=== PATIENT | female | born 1955 | race Caucasian/White ===

== ENCOUNTER 2019-05-06 14:37 | Emergency (ER) | payer BC, MEDICARE ==
[2019-05-06 14:45] VITALS: TEMP 98.5
[2019-05-06 15:19] LABS: Appearance,Urine Clear (Clear); Bilirubin,Urine Negative (Negative); Blood,Urine Negative (Negative); Color,Urine Yellow; Glucose,Urine (UA) Negative (Negative); Ketones,Urine Negative (Negative); Leukocyte Esterase,Urine Negative (Negative); Nitrite,Urine Negative (Negative); PH, Urine 7.5 (5.0-8.0); Protein,Urine Negative (Negative); Specific Gravity,Urine 1.002 (1.001-1.035); Urobilinogen,Urine <2.0 mg/dL (<2.0)
[2019-05-06 15:33] LABS: Basophils % (A) 1 %; Eosinophils # (A) 0.1 k/uL (0-0.7); Eosinophils % (A) 1 %; HCT 41.5 % (34.0-46.0); HGB 14.2 gm/dL (11.4-16.0); Lymphocytes % (A) 35 %; MCH 31.6 pg (25.0-35.0); MCHC 34.2 g/dL (31.0-37.0); MCV 92.4 fL (80.0-100.0); Mean Platelet Volume 7.8; Monocytes # (A) 0.4 k/uL (0-1.0); Monocytes % (A) 7 %; Neutrophils # (A) 3.3 k/uL (1.3-7.7); Neutrophils % (A) 56 %; Platelet Count 235 k/uL (150-450); RBC 4.49 m/uL (3.80-5.40); WBC 5.9 k/uL (3.8-10.6)
[2019-05-06 15:42] LABS: ALT 24 U/L (9-52); AST 33 U/L (14-36); African American GFR (CKD) >90 (>60 ml/min/1.73 sqM); Albumin 4.5 g/dL (3.5-5.0); Alkaline Phosphatase 75 U/L (38-126); Amylase 127 U/L (30-110); Anion Gap 10 mmol/L; Blood Urea Nitrogen 11 mg/dL (7-17); Calcium 9.8 mg/dL (8.4-10.2); Carbon Dioxide 27 mmol/L (22-30); Chloride 105 mmol/L (98-107); Glucose 93 mg/dL (74-99); Potassium 4.3 mmol/L (3.5-5.1); Sodium 142 mmol/L (137-145); Total Bilirubin 0.6 mg/dL (0.2-1.3); Total Protein 7.8 g/dL (6.3-8.2)
--- NOTE | 2019-05-06 16:21 | CT ---
EXAMINATION TYPE: CT abdomen pelvis w con DATE OF EXAM: 05/06/2019 HISTORY: Right lower quadrant and pelvic pain with some nausea. CT DLP: 754.8mGycm Automated Exposure Control for Dose Reduction was Utilized. CONTRAST: CT scan of the abdomen and pelvis is performed with IV Contrast, patient injected with 100 mL of Isov ue 300. COMPARISON: None. FINDINGS: LUNG BASES: Minimal bibasilar subsegmental dependent atelectasis. LIVER/GB: Very mild degree hepatic steatosis. Gallbladder is surgically absent. Minimal intrahepatic biliary ductal dilatation, likely due to post cholecystectomy. PANCREAS: No pancreatic ductal dilatation. Pancreas enhances homogeneously. SPLEEN: Benign splenic granulomas. ADRENALS: There is a 7 mm left adrenal gland nodule seen on image 22 that is not compatible with a be nign adrenal gland adenoma. This has an average Hounsfield unit of 51 on postcontrast imaging. KIDNEYS: No hydronephrosis is seen. Kidneys enhance and excrete symmetrically. BOWEL: Very small hiatal hernia. Appendix is air-filled and within normal limits. Numerous colonic di verticula predominating of the sigmoid colon. Mild degree colonic fecal stasis. Terminal ileum is dec ompressed without surrounding inflammatory fat stranding. Overall no dilated large or small bowel is seen. Few loops of small bowel with prominent bowel wall, which may relate to incomplete distention a re seen in the central and left paracentral abdomen on image 35. UTERUS/ADNEXA: Uterus appears surgically absent. LYMPH NODES: No greater than 1cm abdominal or pelvic lymph nodes are appreciated. OSSEOUS STRUCTURES: Mild diffuse osseous demineralization and mild degenerative changes of the spine. Mild to moderate femoral acetabular arthropathy.. OTHER: Moderate atheromatous change of the abdominal aorta and its branches. IMPRESSION: No CT evidence of acute appendicitis or bowel obstruction. Terminal ileum is decompressed although no surrounding fat stranding is seen. There are cluster loops of small bowel in the mid abdomen and lef t paracentral abdomen display relative bowel wall thickening however these are incompletely distended and this may be artifactual. Enteritis could be considered in the appropriate clinical setting.
[2019-05-06 16:28] VITALS: BP 144/69; PULSE 75; RESP 16
--- NOTE | 2019-05-06 16:55 | ED ---
General Adult HPI - General Chief complaint: Abdominal Pain Stated complaint: Lower abd pain Time Seen by Provider: 05/06/19 14:49 Source: patient, RN notes reviewed Mode of arrival: ambulatory Limitations: no limitations - History of Present Illness Initial comments: 63-year-old female with a past medical history of diverticulosis, hiatal hernia, hypertension presents to the emergency department for a chief complaint of right lower quadrant pain 3 hours. Patient states that this is radiating up to her umbilicus and to her right groin. Denies any pain in her hip or movement of her head. Denies any fevers or chills. Denies any nausea vomiting diarrhea. States she did have a normal bowel movement today. Patient does admit she had a colonoscopy and has a history of diverticulosis however has never had diverticulitis. Patient admits to abdominal history of hysterectomy in the past as well as cholecystectomy. Patient states the pain was much more severe before arriving to has decreased significantly and is now a 3 out of 10.Patient has no other complaints at this time including shortness of breath, chest pain, nausea or vomiting, headache, or visual changes. - Related Data Home Medications Medication Instructions Recorded Confirmed Multivitamins, Thera [Multivitamin 1 tab PO DAILY 05/06/19 05/06/19 (formulary)] Natural Thyroid Otc 1 tab PO BID 05/06/19 05/06/19 Allergies Allergy/AdvReac Type Severity Reaction Status Date / Time erythromycin base Allergy Itching Verified 05/06/19 14:50 [Erythromycin Base] Penicillins Allergy Anaphylaxis Verified 05/06/19 14:50 polyethylene glycol 3350 Allergy Unknown Verified 05/06/19 14:50 [From Miralax] sulfamethoxazole Allergy Itching Verified 05/06/19 14:50 [From Bactrim] trimethoprim [From Bactrim] Allergy Itching Verified 05/06/19 14:50 Review of Systems ROS Statement: Those systems with pertinent positive or pertinent negative responses have been documented in the HPI. ROS Other: All systems not noted in ROS Statement are negative. Past Medical History Past Medical History: Hypertension, Thyroid Disorder Additional Past Medical History / Comment(s): diverticulosis, hiatel hernia, osteopenia History of Any Multi-Drug Resistant Organisms: None Reported Past Surgical History: Section, Hysterectomy Past Psychological History: No Psychological Hx Reported Smoking Status: Former smoker Past Alcohol Use History: None Reported Past Drug Use History: None Reported General Exam Limitations: no limitations General appearance: alert, in no apparent distress Head exam: Present: atraumatic, normocephalic, normal inspection Eye exam: Present: normal appearance, PERRL, EOMI. Absent: scleral icterus, conjunctival injection, periorbital swelling ENT exam: Present: normal exam, mucous membranes moist Neck exam: Present: normal inspection, full ROM. Absent: tenderness, meningismus, lymphadenopathy Respiratory exam: Present: normal lung sounds bilaterally. Absent: respiratory distress, wheezes, rales, rhonchi, stridor Cardiovascular Exam: Present: regular rate, normal rhythm, normal heart sounds. Absent: systolic murmur, diastolic murmur, rubs, gallop, clicks GI/Abdominal exam: Present: soft, tenderness (Tenderness noted in the bilateral lower quadrants of the abdomen. No rebound tenderness or guarding.), normal bowel sounds. Absent: distended, guarding, rebound, rigid Neurological exam: Present: alert Psychiatric exam: Present: normal affect, normal mood Course Vital Signs 05/06/19 05/06/19 14:42 16:27 Temperature 98.5 F Pulse Rate 70 75 Respiratory 18 16 Rate Blood Pressure 151/83 144/69 O2 Sat by Pulse 98 99 Oximetry Medical Decision Making - Medical Decision Making History obtained from patient. Vitals are stable throughout her stay. Physical exam as documented. No significant rebound tenderness or guarding noted. CBC CMP unremarkable. Minimal elevation of amylase however lipase is normal. No acute pancreatitis. Urinalysis is normal. Given abdominal pain with history of diverticulosis and pain in the left lower quadrant as well as right lower quadrant CT was ordered to rule out diverticulitis and appendicitis. This shows no evidence of acute appendicitis or obstruction. There are cluster loops of small bowel in the mid abdomen and left paracentral abdomen the displays a relatively bowel wall thickening however these are included distended and may be artifactual. Patient is not currently expressing any nausea vomiting diarrhea. At this time pain is much improved after reevaluation. Patient may have had a spastic colon. At this time she will follow up with primary care. She will return here if she has any worsening symptoms. - Lab Data Result diagrams: 05/06/19 15:22 05/06/19 15:22 Lab Results 09/02/19 09/02/19 09/02/19 Range/Units 15:10 15:22 15:22 WBC 5.9 (3.8-10.6) k/uL RBC 4.49 (3.80-5.40) m/uL Hgb 14.2 (11.4-16.0) gm/dL Hct 41.5 (34.0-46.0) % MCV 92.4 (80.0-100.0) fL MCH 31.6 (25.0-35.0) pg MCHC 34.2 (31.0-37.0) g/dL RDW 15.0 (11.5-15.5) % Plt Count 235 (150-450) k/uL Neutrophils % 56 % Lymphocytes % 35 % Monocytes % 7 % Eosinophils % 1 % Basophils % 1 % Neutrophils # 3.3 (1.3-7.7) k/uL Lymphocytes # 2.0 (1.0-4.8) k/uL Monocytes # 0.4 (0-1.0) k/uL Eosinophils # 0.1 (0-0.7) k/uL Basophils # 0.0 (0-0.2) k/uL Sodium 142 (137-145) mmol/L Potassium 4.3 (3.5-5.1) mmol/L Chloride 105 (98-107) mmol/L Carbon Dioxide 27 (22-30) mmol/L Anion Gap 10 mmol/L BUN 11 (7-17) mg/dL Creatinine 0.54 (0.52-1.04) mg/dL Est GFR (CKD-EPI)AfAm >90 (>60 ml/min/1.73 sqM) Est GFR (CKD-EPI)NonAf >90 (>60 ml/min/1.73 sqM) Glucose 93 (74-99) mg/dL Plasma Lactic Acid Vipul (0.7-2.0) mmol/L Calcium 9.8 (8.4-10.2) mg/dL Total Bilirubin 0.6 (0.2-1.3) mg/dL AST 33 (14-36) U/L ALT 24 (9-52) U/L Alkaline Phosphatase 75 (38-126) U/L Total Protein 7.8 (6.3-8.2) g/dL Albumin 4.5 (3.5-5.0) g/dL Amylase 127 H (30-110) U/L Lipase 113 (23-300) U/L Urine Color Yellow Urine Appearance Clear (Clear) Urine pH 7.5 (5.0-8.0) Ur Specific [place] 1.002 (1.001-1.035) Urine Protein Negative (Negative) Urine Glucose (UA) Negative (Negative) Urine Ketones Negative (Negative) Urine Blood Negative (Negative) Urine Nitrite Negative (Negative) Urine Bilirubin Negative (Negative) Urine Urobilinogen <2.0 (<2.0) mg/dL Ur Leukocyte Esterase Negative (Negative) 05/06/19 Range/Units 15:22 WBC (3.8-10.6) k/uL RBC (3.80-5.40) m/uL Hgb (11.4-16.0) gm/dL Hct (34.0-46.0) % MCV (80.0-100.0) fL MCH (25.0-35.0) pg MCHC (31.0-37.0) g/dL RDW (11.5-15.5) % Plt Count (150-450) k/uL Neutrophils % % Lymphocytes % % Monocytes % % Eosinophils % % Basophils % % Neutrophils # (1.3-7.7) k/uL Lymphocytes # (1.0-4.8) k/uL Monocytes # (0-1.0) k/uL Eosinophils # (0-0.7) k/uL Basophils # (0-0.2) k/uL Sodium (137-145) mmol/L Potassium (3.5-5.1) mmol/L Chloride (98-107) mmol/L Carbon Dioxide (22-30) mmol/L Anion Gap mmol/L BUN (7-17) mg/dL Creatinine (0.52-1.04) mg/dL Est GFR (CKD-EPI)AfAm (>60 ml/min/1.73 sqM) Est GFR (CKD-EPI)NonAf (>60 ml/min/1.73 sqM) Glucose (74-99) mg/dL Plasma Lactic Acid Vipul 1.2 (0.7-2.0) mmol/L Calcium (8.4-10.2) mg/dL Total Bilirubin (0.2-1.3) mg/dL AST (14-36) U/L ALT (9-52) U/L Alkaline Phosphatase (38-126) U/L Total Protein (6.3-8.2) g/dL Albumin (3.5-5.0) g/dL Amylase (30-110) U/L Lipase (23-300) U/L Urine Color Urine Appearance (Clear) Urine pH (5.0-8.0) Ur Specific [place] (1.001-1.035) Urine Protein (Negative) Urine Glucose (UA) (Negative) Urine Ketones (Negative) Urine Blood (Negative) Urine Nitrite (Negative) Urine Bilirubin (Negative) Urine Urobilinogen (<2.0) mg/dL Ur Leukocyte Esterase (Negative) Disposition Clinical Impression: Abdominal pain, Spasm of colon Disposition: HOME SELF-CARE Instructions (If sedation given, give patient instructions): Abdominal Pain (ED) Additional Instructions: Please follow up with primary care in 1-2 days. If pain worsens or you have any other worsening or concerning symptoms return to the emergency department for further evaluation. Is patient prescribed a controlled substance at d/c from ED?: No Referrals: Shadia Fowler MD [Primary Care Provider] - 1-2 days Time of Disposition: 16:54
== END 2019-05-06 17:35 | disposition home or self-care (01) ==
LOC: EC 14:37
DX: K58.9 Irritable bowel syndrome, unspecified (principal); I10 Essential (primary) hypertension; R74.8 Abnormal levels of other serum enzymes; E07.9 Disorder of thyroid, unspecified; Z79.890 Hormone replacement therapy; Z79.899 Other long term (current) drug therapy; Z88.0 Allergy status to penicillin; Z88.1 Allergy status to other antibiotic agents; Z88.2 Allergy status to sulfonamides; Z90.49 Acquired absence of other specified parts of digestive tract; Z87.19 Personal history of other diseases of the digestive system; Z87.891 Personal history of nicotine dependence; Z90.710 Acquired absence of both cervix and uterus
CPT/HCPCS: 36415; 80053; 82150; 83605; 83690; 85025; 81003; 74177; 99284; Q9967

== ENCOUNTER 2021-03-31 07:21 | Day surgery (SDC) | payer MEDICARE ==
[2021-03-26 13:16] VITALS: BMI 25.4
[~2021-03-31 07:21] MED LIST: LACTATED RINGERS 1,000 ML IV SCH; LIDOCAINE 1% (10MG/ML) FOR IV START INTRADERMA PRN
--- NOTE | 2021-03-31 07:35 | P.GSHP ---
History of Present Illness H&P Date: 03/31/21 CHIEF COMPLAINT: GERD and colon screen HISTORY OF PRESENT ILLNESS: The patient is a 65-year-old female who presents with gastroesophageal reflux disease and need for colon screen. Upper and lower endoscopy were offered for further evaluation and management. PAST MEDICAL HISTORY: Please see list. PAST SURGICAL HISTORY: Please see list. MEDICATIONS: Please see list. ALLERGIES: Please see list. SOCIAL HISTORY: No illicit drug use FAMILY HISTORY: No reports of Crohn disease or ulcerative colitis. REVIEW OF ORGAN SYSTEMS: CONSTITUTIONAL: No reports of fevers or chills. GI: Denies any blood in stools or constipation. PHYSICAL EXAM: VITAL SIGNS: Stable GENERAL: Well-developed pleasant in no acute distress. HEENT: No scleral icterus. Extraocular movements grossly intact. Moist buccal mucosa. NECK: Supple without lymphadenopathy. CHEST: Unlabored respirations. Equal bilateral excursions. CARDIOVASCULAR: Regular rate and rhythm. Distal 2+ pulses. ABDOMEN: Soft, nondistended. MUSCULOSKELETAL: No clubbing, cyanosis, or edema. ASSESSMENT: 1. Gastroesophageal reflux disease 2. Colon screen. PLAN: 1. Recommend proceeding with an upper and lower endoscopy Past Medical History Past Medical History: Thyroid Disorder Additional Past Medical History / Comment(s): diverticulosis, hiatel hernia, osteopenia History of Any Multi-Drug Resistant Organisms: None Reported Past Surgical History: Section, Cholecystectomy, Hysterectomy Past Anesthesia/Blood Transfusion Reactions: No Reported Reaction, Postoperative Nausea & Vomiting (PONV) Smoking Status: Former smoker Medications and Allergies Home Medications Medication Instructions Recorded Confirmed Type Multivitamins, Thera [Multivitamin 1 tab PO DAILY 05/06/19 03/26/21 History (formulary)] Natural Thyroid Otc 1 tab PO BID 05/06/19 03/26/21 History Enzyme 1 dose PO AC-TID 03/26/21 03/26/21 History Krill Oil 500 mg PO DAILY 03/26/21 03/26/21 History Ubidecarenone [Co Q-10] 100 mg PO DAILY 03/26/21 03/26/21 History Vitamin B Complex 1 each PO DAILY 03/26/21 03/26/21 History Allergies Allergy/AdvReac Type Severity Reaction Status Date / Time erythromycin base Allergy Itching Verified 05/06/19 14:50 [Erythromycin Base] monosodium glutamate [MSG] Allergy Unknown Verified 03/26/21 13:10 Penicillins Allergy Anaphylaxis Verified 05/06/19 14:50 polyethylene glycol 3350 Allergy Unknown Verified 05/06/19 14:50 [From Miralax] sulfamethoxazole Allergy Itching Verified 05/06/19 14:50 [From Bactrim] trimethoprim [From Bactrim] Allergy Itching Verified 05/06/19 14:50 all mycins Allergy Unknown Uncoded 03/26/21 13:10 PEG Allergy Unknown Uncoded 03/26/21 13:10
[2021-03-31] MEDS ORDERED: LACTATED RINGERS 1,000 ML IV ONE (07:38)
[2021-03-31 07:40] VITALS: TEMP 97.1
[2021-03-31 08:02] LABS: Glucose,Whole Blood 218 mg/dL (75-99)
[2021-03-31] MEDS ORDERED: LIDOCAINE 1% INJ 10MG/ML (20 ML MDV) ONE (08:10)
[2021-03-31] MEDS ORDERED: PROPOFOL 10 MG/ML 20 ML VIAL IV ONE (08:10)
--- NOTE | 2021-03-31 08:23 | P.PCN ---
Date of Procedure: 03/31/21 Description of Procedure: PREOPERATIVE DIAGNOSIS: Gastroesophageal reflux disease. POSTOPERATIVE DIAGNOSIS: Gastritis. Gastroesophageal reflux disease. Diaphragmatic hiatal hernia OPERATION: Esophagogastroduodenoscopy with biopsies along antrum. SURGEON: Elizabeht Gonzalez MD ANESTHESIA: MAC. INDICATIONS: The patient is a 65-year-old female who presents with a history of reflux disease. Benefits and risks of the procedure were described. Informed consent was obtained. DESCRIPTION: The patient was brought into the endoscopy suite and laid in the left lateral decubitus position. An Olympus gastroscope was passed along the posterior oropharynx down to the distal esophagus where the squamocolumnar junction was encountered at 38 cm from the incisors. The stomach was entered and no bile reflux was found. Additional findings are listed below. Biopsies with cold forceps were obtained of the antrum. The first through third portion of the duodenum was examined and unremarkable. Retroflexion of the scope confirmed Hill grade 3 lower esophageal valve. The squamocolumnar junction demonstrated LA grade B erosive esophagitis. The stomach was desufflated. The patient tolerated the procedure well. FINDINGS: Squamocolumnar junction 38 cm from the incisors. Diaphragmatic hiatus at 40 cm. Hiatal hernia, 2 cm Hill grade 3 lower esophageal valve. LA grade B erosive esophagitis. No active duodenitis. Chronic gastritis RECOMMENDATIONS: Upper endoscopy as needed.
--- NOTE | 2021-03-31 08:50 | P.PCN ---
Date of Procedure: 03/31/21 Description of Procedure: PREOPERATIVE DIAGNOSIS: Personal history colon polyps Family history colon polyps Colonoscopy screening. POSTOPERATIVE DIAGNOSIS: Personal history colon polyps Family history colon polyps Colonoscopy screening. Diverticulosis, scattered. OPERATION: Colonoscopy to the cecum, ileocecal valve and appendiceal orifice. SURGEON: Elizabeth Gonzalez MD. ANESTHESIA: MAC. INDICATIONS: The patient is a 65-year-old female who presents for colonoscopy screening. Last colonoscopy over 10 years ago. Benefits and risks were described and informed consent was obtained. DESCRIPTION OF PROCEDURE: The patient had undergone Suprep. The patient had been brought into the operating room and laid in the left lateral decubitus position. After adequate intravenous sedation, the rectum was examined with 2% lidocaine jelly. External hemorrhoids were encountered. The rectal tone was within normal limits. No lesions were palpated in the rectal vault. An Olympus colonoscope was advanced to the ascending colon however limited to severe redundancy of sigmoid colon despite abdominal wall pressure. The prep was excellent. Severe sigmoid diverticulosis was encountered. Severe redundancy of sigmoid colon was identified. No colonic polyps were found. No evidence of focal colitis was fo und. Retroflexion of the scope demonstrated grade 1 internal hemorrhoids without active bleeding or inflammation. The colon was desufflated. The patient had tolerated the procedure well. Withdrawal time was over 6 minutes. FINDINGS: Aronchick preparation quality scale 1 (1-5) Internal hemorrhoids, grade 1 Severe redundancy sigmoid colon External prolapsed hemorrhoids, grade 2 No arteriovenous malformations. No adenomatous polyps. No focal colitis. RECOMMENDATIONS: Lower endoscopy in 5 years, 2025 May benefit from Cologaurd Plan - Discharge Summary Discharge Rx Participant: No New Discharge Prescriptions: Continue Multivitamins, Thera [Multivitamin (formulary)] 1 tab PO DAILY Natural Thyroid Otc 1 tab PO BID Krill Oil 500 mg PO DAILY Ubidecarenone [Co Q-10] 100 mg PO DAILY Vitamin B Complex 1 each PO DAILY Enzyme 1 dose PO AC-TID Discharge Medication List Multivitamins, Thera [Multivitamin (formulary)] 1 tab PO DAILY 05/06/19 [History] Natural Thyroid Otc 1 tab PO BID 05/06/19 [History] Enzyme 1 dose PO AC-TID 03/26/21 [History] Krill Oil 500 mg PO DAILY 03/26/21 [History] Ubidecarenone [Co Q-10] 100 mg PO DAILY 03/26/21 [History] Vitamin B Complex 1 each PO DAILY 03/26/21 [History] Follow up Appointment(s)/Referral(s): Elizabeth Gonzalez MD [STAFF PHYSICIAN] - 04/08/21 Patient Instructions/Handouts: Diverticulosis Diet (GEN), Diverticulosis (DC), Hiatal Hernia (DC), *Surgery [facility] - (Anesthesia) Endoscopy Discharge Instructions Activity/Diet/Wound Care/Special Instructions: Repeat colonoscopy in 5 years, 2025 Discharge Disposition: HOME SELF-CARE
[2021-03-31 09:08] VITALS: BP 125/73; PULSE 66; RESP 18
== END 2021-03-31 10:10 | disposition home or self-care (01) ==
LOC: ORWHC2ENDO 07:21
PROVIDERS: ATTEND Surgery Plastic and Reconstructive Surgery
DX: K29.50 Unspecified chronic gastritis without bleeding (principal); K21.9 Gastro-esophageal reflux disease without esophagitis; K44.9 Diaphragmatic hernia without obstruction or gangrene; E11.9 Type 2 diabetes mellitus without complications; E55.9 Vitamin D deficiency, unspecified; E07.9 Disorder of thyroid, unspecified; K57.90 Diverticulosis of intestine, part unspecified, without perforation or abscess without bleeding; Z83.71 Family history of colonic polyps; Z87.891 Personal history of nicotine dependence; Z88.0 Allergy status to penicillin; Z88.1 Allergy status to other antibiotic agents; Z88.2 Allergy status to sulfonamides; M85.80 Other specified disorders of bone density and structure, unspecified site
CPT/HCPCS: 45378; 43239; 88305; J2001; J2704

== ENCOUNTER → 2021-05-13 | Outpatient (CLI) | payer MEDICARE | END | disposition home or self-care (01) | LOC: LABWHC1 11:33 | PROVIDERS: ATTEND Otolaryngology | DX: J30.89 Other allergic rhinitis (principal) | CPT/HCPCS: 36415 ==